=== PATIENT | female | born 1970 | race Caucasian/White ===

== ENCOUNTER → 2021-05-01 09:34 | Outpatient (CLI) | payer OTHER, SELFPAY ==
[2021-05-02 13:39] LABS: Covid-19 Nasal PCR Sendout Lex NOT DETECTED
== END ==
PROVIDERS: Visit Provider Nurse Practitioner
DX: Z20.822 Contact with and (suspected) exposure to COVID-19 (principal)
CPT/HCPCS: C9803; U0004; U0005

== ENCOUNTER → 2021-09-03 10:39 | Outpatient (CLI) | payer OTHER, SELFPAY ==
--- NOTE | 2021-09-03 10:39 | MM_ITS ---
PROCEDURE INFORMATION: Exam: Bilateral Screening 3D Mammography Exam date and time: 09/03/2021 10:35 AM Age: 51 years old Clinical indication: Screening. No family history of breast cancer. TECHNIQUE: Imaging protocol: Bilateral Screening tomosynthesis and 2D mammography including computer-aided detection (CAD) when performed. COMPARISON: No relevant prior studies available. If prior mammograms are provided, I am happy to add an addendum. FINDINGS: MAMMOGRAPHY: Breast composition: There are scattered areas of fibroglandular density. Mass: None. Architectural distortion: None. Calcifications: No suspicious calcifications. Asymmetric density: None. Skin thickening: None. Axillary adenopathy: None. IMPRESSION: No mammographic evidence of malignancy. Annual screening is recommended unless otherwise clinically indicated. ASSESSMENT: BI-RADS Category 1: Negative
== END ==
PROVIDERS: PCP Pediatrics; Visit Provider Obstetrics & Gynecology
DX: Z12.31 Encounter for screening mammogram for malignant neoplasm of breast (principal)
CPT/HCPCS: 77063; 77067

== ENCOUNTER → 2021-09-25 10:52 | Outpatient (CLI) | payer OTHER, SELFPAY ==
[2021-09-25 11:13] LABS: Basophils % 0.4 % (0.1-2.0); Eosinophils # 0.4 K/mm3 (0.0-0.4); Eosinophils % 5.2 % (0.1-12.0); Hematocrit 41.7 % (37.0-47.0); Hemoglobin 14.1 g/dL (12.2-16.2); Lymphocytes # 1.4 K/mm3 (0.7-4.5); Lymphocytes % 19.5 % (10-50); Mean Corpuscular HGB Conc 33.8 g/dL (31.8-35.4); Mean Corpuscular Hemoglobin 29.6 pg (27.0-31.2); Mean Corpuscular Volume 87.5 fl (81-99); Mean Platelet Volume 7.4 fl (7.4-10.4); Monocytes # 0.4 K/mm3 (0.1-1.0); Monocytes % 6.1 % (1.7-9.3); Neutrophils # 4.8 K/mm3 (1.8-7.8); Neutrophils % 68.7 % (37.0-80.0); Platelet Count 252 K/mm3 (142-424); Red Blood Count 4.77 M/mm3 (4.20-5.40); Red Cell Distribution Width 12.7 % (11.5-17.5); White Blood Count 6.9 K/mm3 (4.8-10.8)
[2021-09-25 11:57] LABS: Alanine Aminotransferase 30 U/L (12-78); Albumin/Globulin Ratio 1.6 (1.1-1.8); Alkaline Phosphatase 78 U/L (38-126); Anion Gap 8.1 mEq/L (5-15); Aspartate Amino Transferase 46 U/L (14-36); Bilirubin,Total 0.3 mg/dl (0.2-1.3); Blood Urea Nitrogen 10 mg/dl (7-17); Calcium 9.3 mg/dl (8.4-10.2); Carbon Dioxide 32 mmol/L (22.0-30.0); Chloride 103 mmol/L (98-107); Cholesterol 170 mg/dl (140-200); Estimated Glomerular Filt Rate 88 ml/min (>60); GFR (African American) 106 ML/MIN (>60); Globulin 2.5 g/dL (1.3-3.2); Glucose 90 mg/dl (74-100); HDL Cholesterol 34 mg/dl (40-60); Potassium 4.1 mmoL/L (3.5-5.1); Sodium 139 mmol/L (136-145); Total Protein,Serum 6.5 g/dl (6.3-8.2); Triglycerides 116 mg/dl (30-150); VLDL Cholesterol 23 mg/dL (0-40)
[2021-09-25 12:07] LABS: Direct LDL Cholesterol 92.02 mg/dL (100-129)
[2021-09-25 12:28] LABS: Thyroid Stimulating Hormone 6.09 uIU/mL (0.465-4.68)
[2021-09-25 16:49] LABS: Free T4 (Free Thyroxine) 0.65 ng/dl (0.78-2.19)
[2021-10-10 17:11] LABS: 1,25 Dihydroxy Vitamin D 53 pg/mL (.); 1,25-Dihydroxy, Vitamin D-2 <10 pg/mL (.); 1,25-Dihydroxy, Vitamin D-3 53 pg/mL (.)
== END ==
PROVIDERS: Visit Provider Obstetrics & Gynecology
DX: Z01.419 Encounter for gynecological examination (general) (routine) without abnormal findings (principal); R79.89 Other specified abnormal findings of blood chemistry; Z79.899 Other long term (current) drug therapy
CPT/HCPCS: 36415; 80053; 80061; 82652; 84439; 84443; 85025

== ENCOUNTER → 2021-11-25 11:14 | Outpatient (CLI) | payer OTHER, SELFPAY ==
[2021-11-25 14:16] LABS: Basophils # 0.1 K/mm3 (0-0.2); Basophils % 1.3 % (0.1-2.0); Eosinophils # 0.2 K/mm3 (0.0-0.4); Eosinophils % 3.7 % (0.1-12.0); Hematocrit 43.1 % (37.0-47.0); Hemoglobin 13.3 g/dL (12.2-16.2); Lymphocytes % 30.9 % (10-50); Mean Corpuscular HGB Conc 30.9 g/dL (31.8-35.4); Mean Corpuscular Hemoglobin 29.6 pg (27.0-31.2); Mean Corpuscular Volume 95.8 fl (81-99); Mean Platelet Volume 7.9 fl (7.4-10.4); Monocytes # 0.4 K/mm3 (0.1-1.0); Monocytes % 5.7 % (1.7-9.3); Neutrophils # 3.8 K/mm3 (1.8-7.8); Neutrophils % 58.4 % (37.0-80.0); Platelet Count 310 K/mm3 (142-424); Red Cell Distribution Width 13.4 % (11.5-17.5); White Blood Count 6.6 K/mm3 (4.8-10.8)
[2021-11-25 14:19] LABS: Alanine Aminotransferase 12 U/L (12-78); Albumin Level 4.2 g/dl (3.5-5.0); Albumin/Globulin Ratio 1.7 (1.1-1.8); Alkaline Phosphatase 83 U/L (38-126); Anion Gap 10.7 mEq/L (5-15); Aspartate Amino Transferase 24 U/L (14-36); Bilirubin,Total 0.1 mg/dl (0.2-1.3); Blood Urea Nitrogen 10 mg/dl (7-17); Calcium 9.3 mg/dl (8.4-10.2); Carbon Dioxide 30 mmol/L (22.0-30.0); Chloride 104 mmol/L (98-107); Estimated Glomerular Filt Rate 88 ml/min (>60); GFR (African American) 106 ML/MIN (>60); Globulin 2.5 g/dL (1.3-3.2); Glucose 75 mg/dl (74-100); Potassium 4.7 mmoL/L (3.5-5.1); Sodium 140 mmol/L (136-145); Total Protein,Serum 6.7 g/dl (6.3-8.2)
== END ==
PROVIDERS: PCP Family Medicine; Visit Provider Obstetrics & Gynecology
DX: R19.8 Other specified symptoms and signs involving the digestive system and abdomen (principal)
CPT/HCPCS: 36415; 80053; 85025

== ENCOUNTER 2022-03-02 13:15 | Emergency (ER) | payer OTHER, SELFPAY ==
--- NOTE | 2022-03-02 15:20 | EXP.UTC ---
Discharge Plan Disposition Patient Disposition: Home, Self-Care Condition: Good Prescriptions Prescriptions: New azithromycin [Zithromax] 250 mg tablet 250 mg PO UD DOSE PK Qty: 6 0RF Rx Instructions: Take two (2) tablets today, then one (1) tablet days #2 thru #5 benzonatate [benzonatate] 100 mg capsule 100 mg PO TIDP PRN (Reason: Cough) Qty: 30 0RF methylprednisolone 4 mg Tablets,Dose Pack 4 mg PO DIRECTED Qty: 21 0RF No Action multivitamin Tablet 1 tab PO DAILY acyclovir 200 mg capsule 200 mg PO TID clobetasol 0.05 % ointment 1 applic TP HS Qty: 30 2RF citalopram 40 mg tablet 40 mg PO DAILY Qty: 90 3RF methylprednisolone [Medrol (Mando)] 4 mg tablets,dose pack See Rx Instructions PO PER PKG DIR Qty: 21 0RF Rx Instructions: PO PER PKG DIR levothyroxine 50 mcg capsule 50 mcg PO DAILY Qty: 90 3RF Referrals Follow up/Referrals: Warren Lu MD [Primary Care Provider] - See instructions Activity Restrictions/Add. Instructions Additional Instructions/Restrictions: Drink plenty of fluids. Take tylenol or ibuprofen for pain or fever. Take the medications as directed. Follow up with your regular doctor. GO TO THE ER FOR ANY WORSENING SYMPTOMS Clinical Impressions Clinical Impression: Bronchitis, Sinusitis Stand Alone Forms Stand Alone Forms: Work/School Release Instructions Patient Instructions: DI for Sinusitis, DI for Acute Bronchitis Discharge ED Provider: Ry Powell [facility] General Stated complaint: Cough,Diarreha Time Seen by Provider: 03/02/22 15:20 History of Present Illness Provider Complaint: She states that for the past 1 week she has had sinus and chest congestion. She has felt like she was getting worse, so she came in here today. She denies fever, chills, and body aches. Related Data Home Medications Medication Instructions Recorded Confirmed acyclovir 200 mg capsule 200 mg PO TID 08/25/21 12/09/21 multivitamin 1 tab PO DAILY 08/25/21 12/09/21 Previous Rx's Medication Instructions Recorded clobetasol 0.05 % topical ointment 1 applic topical HS #30 grams 08/25/21 citalopram 40 mg tablet 40 mg PO DAILY #90 tabs 12/09/21 levothyroxine 50 mcg capsule 50 mcg PO DAILY #90 caps 12/09/21 methylprednisolone 4 mg tablets in See Rx Instructions PO PER PKG DIR 12/09/21 a dose pack (Medrol (Mando)) #21 tabs azithromycin 250 mg tablet 250 mg PO UD DOSE PK #6 tabs 03/02/22 (Zithromax) benzonatate 100 mg capsule 100 mg PO TIDP PRN Cough #30 caps 03/02/22 methylprednisolone 4 mg tablets in 4 mg PO DIRECTED #21 tabs 03/02/22 a dose pack Allergies Allergy/AdvReac Type Severity Reaction Status Date / Time acetaminophen [From Percocet] Allergy Verified 03/02/22 15:31 oxycodone [From Percocet] Allergy Verified 03/02/22 15:31 Sulfa (Sulfonamide Allergy Verified 03/02/22 15:30 Antibiotics) PFSH PFSH Social History Smoking Status: Current every day smoker alcohol intake: never current occupational status: unemployed Travel in the last 8 weeks: None ROS Obtained: Yes All systems reviewed & no additional complaints except as documented Constitutional Constitutional: Denies chills and Denies fever(s) Eyes Eyes: Denies eye discharge ENT Ears, Nose, Mouth, and Throat: Reports as per HPI, Denies dizziness, Denies otalgia, Reports sinus pressure and Reports sore throat Cardiovascular Cardiovascular: Denies chest pain Respiratory Respiratory: Denies shortness of breath, Denies chest congestion, Denies cough, Denies stridor and Denies wheezing Gastrointestinal Gastrointestingal: Denies nausea or vomiting Musculoskeletal Musculoskeletal: Reports system reviewed and no additional complaints, except as documented and Denies arthralgias Integumentary/Breasts Skin/Breast: Denies rash Neurologic Neurologic: Denies dizziness and Denies parest
[2022-03-02 15:27] LABS: UTC Influenza A Antigen Negative (Negative); UTC Influenza B Antigen Negative (Negative)
[2022-03-02 15:28] VITALS: BP 116/77; PULSE 65; RESP 18; TEMP 36.7; O2SAT 98; BMI 24.0
[2022-03-02 16:08] VITALS: BP 116/77; PULSE 65; RESP 18; TEMP 36.7
== END 2022-03-02 16:08 | disposition home or self-care (01) ==
PROVIDERS: Emergency Provider Nurse Practitioner Family; PCP Family Medicine
DX: J40 Bronchitis, not specified as acute or chronic (principal); J32.9 Chronic sinusitis, unspecified
CPT/HCPCS: 87804; 99212; G0463

== ENCOUNTER → 2022-10-12 08:45 | Outpatient (CLI) | payer OTHER, SELFPAY ==
--- NOTE | 2022-10-12 08:45 | MM_ITS ---
PROCEDURE INFORMATION: Exam: MG Bilateral Screening 3D Mammography Exam date and time: 10/12/2022 8:37 AM Age: 52 years old Clinical indication: Screening examination TECHNIQUE: Imaging protocol: Bilateral Screening tomosynthesis and 2D mammography including computer-aided detection (CAD) when performed. COMPARISON: 1. MG MM DIG SCREENING MAMM BI W/CAD 09/03/2021 10:35 AM 2. MG DMSB DIGITAL MAMM-SCREEN BILATERAL 08/08/2012 3:27 PM FINDINGS: MAMMOGRAPHY: Breast composition: The breasts are heterogeneously dense, which may obscure small masses. Mass: None. Architectural distortion: None. Calcifications: No suspicious calcifications. Asymmetric density: None. Skin thickening: None. Axillary adenopathy: None. IMPRESSION: No mammographic evidence of malignancy. Annual screening is recommended unless otherwise clinically indicated. ASSESSMENT: BI-RADS Category 1: Negative
== END ==
PROVIDERS: PCP Family Medicine; Visit Provider Obstetrics & Gynecology
DX: Z12.31 Encounter for screening mammogram for malignant neoplasm of breast (principal)
CPT/HCPCS: 77063; 77067

== ENCOUNTER → 2022-10-13 16:15 | Outpatient (CLI) | payer OTHER, SELFPAY ==
[2022-10-13 12:54] LABS: Basophils # 0.1 K/mm3 (0-0.2); Basophils % 0.5 % (0.1-2.0); Eosinophils # 0.3 K/mm3 (0.0-0.4); Eosinophils % 2.9 % (0.1-12.0); Hematocrit 43.3 % (37.0-47.0); Hemoglobin 13.6 g/dL (12.2-16.2); Lymphocytes # 2.6 K/mm3 (0.7-4.5); Lymphocytes % 28.8 % (10-50); Mean Corpuscular HGB Conc 31.4 g/dL (31.8-35.4); Mean Corpuscular Hemoglobin 28.9 pg (27.0-31.2); Mean Platelet Volume 8.3 fl (7.4-10.4); Monocytes # 0.6 K/mm3 (0.1-1.0); Monocytes % 6.1 % (1.7-9.3); Neutrophils # 5.6 K/mm3 (1.8-7.8); Neutrophils % 61.6 % (37.0-80.0); Platelet Count 278 K/mm3 (142-424); Red Cell Distribution Width 13.3 % (11.5-17.5)
[2022-10-13 13:22] LABS: Alanine Aminotransferase 19 U/L (12-78); Albumin Level 4.1 g/dl (3.5-5.0); Albumin/Globulin Ratio 1.7 (1.1-1.8); Alkaline Phosphatase 81 U/L (38-126); Aspartate Amino Transferase 24 U/L (14-36); Bilirubin,Total 0.3 mg/dl (0.2-1.3); Blood Urea Nitrogen 15 mg/dl (7-17); Calcium 8.9 mg/dl (8.4-10.2); Carbon Dioxide 25 mmol/L (22.0-30.0); Chloride 108 mmol/L (98-107); Chol/HDL Ratio 4.3 (1-3.5); Cholesterol 163 mg/dl (140-200); Estimated Glomerular Filt Rate 75 ml/min (>60); GFR (African American) 91 ML/MIN (>60); Globulin 2.4 g/dL (1.3-3.2); Glucose 105 mg/dl (74-100); HDL Cholesterol 38 mg/dl (40-60); Sodium 142 mmol/L (136-145); Total Protein,Serum 6.5 g/dl (6.3-8.2); Triglycerides 104 mg/dl (30-150); VLDL Cholesterol 21 mg/dL (0-40)
[2022-10-13 13:34] LABS: Direct LDL Cholesterol 92.44 mg/dL (100-129)
[2022-10-13 13:39] LABS: 25-OH Vitamin D, Total 32.6 ng/mL (30-100); Free T4 (Free Thyroxine) 0.76 ng/dl (0.78-2.19)
[2022-10-13 13:52] LABS: Thyroid Stimulating Hormone 3.86 uIU/mL (0.465-4.68)
== END ==
PROVIDERS: PCP Emergency Medicine; Visit Provider Emergency Medicine
DX: E03.9 Hypothyroidism, unspecified (principal)
CPT/HCPCS: 80053; 80061; 82306; 84439; 84443; 85025

== ENCOUNTER → 2022-11-16 11:51 | Outpatient (CLI) | payer OTHER, SELFPAY ==
--- NOTE | 2022-11-16 11:54 | XR_ITS ---
FINAL REPORT CLINICAL HISTORY: Left foot Pain for 3 weeks, some swelling COMPARISON: None FINDINGS: LEFT FOOT: Three views of the left foot were obtained. There is no acute fracture or dislocation. There is mild degenerative change. Small calcaneal spurs are noted. Pes planus deformity is present. There is no soft tissue abnormality. IMPRESSION: No acute bony abnormality. Reviewed, Interpreted and Dictated by Jaylan Rock III, MD Transcribed by Jodi Sparrow Authenticated and [facility]
--- NOTE | 2022-11-16 11:54 | XR_ITS ---
FINAL REPORT CLINICAL HISTORY: Left ankle Pain, pain 3 weeks, swelling COMPARISON: None FINDINGS: LEFT ANKLE: Three views of the left ankle were obtained. There is no acute fracture or dislocation. Mild degenerative change. Calcaneal spurs are present. There is chronic calcification inferior to the medial malleolus. There is no soft tissue abnormality. IMPRESSION: No acute bony abnormality. Reviewed, Interpreted and Dictated by Jaylan Rock III, MD Transcribed by Jodi Sparrow Authenticated and [facility]
== END ==
PROVIDERS: PCP Physician Assistant; Visit Provider Physician Assistant
DX: M79.672 Pain in left foot (principal); M25.572 Pain in left ankle and joints of left foot
CPT/HCPCS: 73610; 73630

== ENCOUNTER → 2023-03-24 23:08 | Outpatient (CLI) | payer OTHER, SELFPAY | LOC: LAB.DROPOF 23:11 | PROVIDERS: PCP Nurse Practitioner Family; Visit Provider Nurse Practitioner Family | DX: M79.674 Pain in right toe(s) (principal); B35.1 Tinea unguium | CPT/HCPCS: 87102; 87206; 87220 ==

== ENCOUNTER 2023-11-02 13:13 | Outpatient (CLI) | payer OTHER, SELFPAY ==
--- NOTE | 2023-11-02 13:13 | MM_ITS ---
PROCEDURE INFORMATION: Exam: MG Bilateral Screening 3D Mammography Exam date and time: 11/02/2023 1:10 PM Age: 53 years old Clinical indication: Screening examination. TECHNIQUE: Imaging protocol: Bilateral Screening tomosynthesis and 2D mammography including computer-aided detection (CAD) when performed. COMPARISON: 1. MG MM DIG SCREENING MAMM BI W/CAD 10/12/2022 8:37 AM 2. MG MM DIG SCREENING MAMM BI W/CAD 09/03/2021 10:35 AM 3. MG DMSB DIGITAL MAMM-SCREEN BILATERAL 08/08/2012 3:27 PM 4. MG DMSB DIGITAL MAMM-SCREEN BILATERAL 07/20/2011 2:17 PM FINDINGS: MAMMOGRAPHY: Breast composition: The breasts are heterogeneously dense, which may obscure small masses. Mass: None. Architectural distortion: None. Calcifications: No suspicious calcifications. Asymmetric density: None. Skin thickening: None. Axillary adenopathy: None. IMPRESSION: No mammographic evidence of malignancy. Annual screening is recommended unless otherwise clinically indicated. ASSESSMENT: BI-RADS Category 1: Negative
== END 2023-11-02 23:59 | disposition home or self-care (01) ==
LOC: RAD 13:13
PROVIDERS: PCP Physician Assistant; Visit Provider Physician Assistant
DX: Z12.31 Encounter for screening mammogram for malignant neoplasm of breast (principal)
CPT/HCPCS: 77063; 77067

== ENCOUNTER 2024-11-07 11:00 | Outpatient (CLI) | payer OTHER, SELFPAY | END 2024-11-07 23:59 | disposition home or self-care (01) | LOC: RAD 11:00 | PROVIDERS: PCP Physician Assistant; Visit Provider Obstetrics & Gynecology | DX: Z12.31 Encounter for screening mammogram for malignant neoplasm of breast (principal) | CPT/HCPCS: 77063; 77067 ==

== ENCOUNTER → 2024-12-07 10:54 | Day surgery (SDC) | payer OTHER, SELFPAY ==
[2024-12-01 11:05] VITALS: BMI 28.8
--- NOTE | 2024-12-06 09:54 | EXP.HP ---
History of Present Illness *Admission Date: 12/07/24 *History of present illness: Mrs. Gorman is a 54-year-old female who is here for screening colonoscopy. The patient's last colonoscopy was more than 10 years ago. She reports no abdominal pain, weight loss, change in her bowel habits or rectal bleeding. She reports no family history of colon cancer. The examination is deemed medically necessary for screening colonoscopy. The patient has been seen, interviewed and examined prior to the procedure by both myself and the anesthesia provider. [facility] Disclaimer: The information contained in this section may have been updated after the patient was seen, as this information can be updated by other users. Medical History Low back pain Tinnitus of right ear Right serous otitis media Weight gain, abnormal Lichen sclerosus et atrophicus of the vulva Depression Surgical History History of carpal tunnel release History of delivery Hx of appendectomy History of laparoscopy Family History Father Bone cancer Mother Family history of myocardial infarction Social History (Updated 12/07/24 @ 11:44 by Jayna Kendrick CRNA) Smoking Status: Former smoker alcohol intake: never substance use type: unknown current occupational status: unemployed Travel in the last 8 weeks?: None Have you lived/traveled outside US in past 30 days?: No Contact w/someone who lives/traveled outside US past 30 days?: No Exposure to someone with infectious disease in past 14 days?: No Do you have a fever (greater than 100.4 F or 38 C)?: No Have you tested positive for COVID-19?: No Exposed to someone with COVID-19 in past 14 days?: No Do you have a sore throat?: No Do you have a cough?: No Do you have any weakness?: No Do you have any diarrhea?: No Are you experiencing any unusual bleeding?: No Do you have any muscle aches/pain?: No Do you have any abdominal pain?: No Are you experiencing loss of taste or smell?: No Other Medical History Have you received the Pneumonia Vaccine: No Review of Systems Review of Systems Review of systems (narrative): Negative *Cardiovascular Comments: Negative *Gastrointestinal Comments: Negative *Genitourinary Comments: Negative *Musculoskeletal Comments: Negative *Neurologic Comments: Negative Meds Home Medications and Allergies Home Medications ?Medication ?Instructions ?Recorded ?Confirmed ?Type aspirin 81 mg tablet,delayed 81 mg PO DAILY 10/22/23 12/07/24 History release (Adult Low Dose Aspirin) citalopram 20 mg tablet See Rx Instructions .Route 01/07/24 12/07/24 Rx .COMPLEX #90 tabs acyclovir 800 mg tablet 800 mg PO QODHS 08/24/24 12/07/24 History cholecalciferol (vitamin D3) 50 50 mcg PO DAILY 08/24/24 12/07/24 History mcg (2,000 unit) capsule ergocalciferol (vitamin D2) 1,250 1,250 mcg PO WEEKLY 08/24/24 12/07/24 History mcg (50,000 unit) capsule levothyroxine 50 mcg tablet 50 mcg PO DAILY 08/24/24 12/07/24 History varenicline tartrate 0.5 mg (11)-1 1 tab PO DAILY 08/24/24 12/07/24 History mg (42) tablets in a dose pack (Chantix Starting Month Box) meloxicam 7.5 mg tablet See Rx Instructions .Route 11/23/24 12/07/24 Rx .COMPLEX #90 tabs sodium,potassium,mag sulfates 17.5 See Rx Instructions PO .COMPLEX 11/24/24 Rx gram-3.13 gram-1.6 gram oral soln #354 mL (Suprep Bowel Prep Kit) ascorbic acid (vitamin C) 25 mg 25 mg PO DAILY 12/01/24 12/07/24 History tablet gabapentin 100 mg tablet 100 mg PO TID PRN Pain 12/01/24 12/07/24 History omeprazole 10 mg capsule,delayed 10 mg PO DAILY 12/01/24 12/07/24 History release vitamin E 30 unit capsule 30 unit PO DAILY 12/01/24 12/07/24 History peg 3350-electrolytes 236 240 ml PO Q10M colonscopy #4,000 mL 12/05/24 Rx gram-22.74 gram-6.74 gram-5.86 gram solution (Golytely) New Prescriptions to Start Prescriptions: Allergies Allergy/AdvReac Type Severity Reaction Status Date / Time acetaminophen (From Percocet) Allergy Nausea Verified 12/07/24 11:15 oxycodone (From Percocet) Allergy Nausea Verified 12/07/24 11:15 Sulfa (Sulfonamide Allergy Hives Verified 12/07/24 11:15 Antibiotics) Exam *Routine HEENT Exam Head: Present normocephalic Eye: Present EOMI and PERRL ENT: Present mucous membranes moist *Routine Neck Exam Neck: Present supple *Routine Respiratory Exam Respiratory: Present CTA bilaterally *Routine Cardiovascular Exam Cardiovascular: Present RRR *Routine Abdominal Exam Abdominal: Present soft and normoactive bowel sounds; Absent tenderness *Routine Rectal Exam Rectal:: deferred *Routine Genitalia Exam Genitalia:: deferred *Routine Extremities Exam Extremities: Absent cyanosis, clubbing or edema *Routine Skin Exam Skin: Present warm; Absent rash *Routine Neurological Exam Neurological: Present alert and oriented X3 Assessment and Plan *Assessment and plan (1) Screening for colon cancer: Status: Acute Category: Medical Code(s): Z12.11 - Encounter for screening for malignant neoplasm of colon Plan A/P: 1. Screening for colon cancer is the preprocedural diagnosis. The patient will be anesthetized/sedated using MAC sedation. The patient has been seen and examined. Cardiac and lung assessment prior to the examination is stable. Proceed with planned screening colonoscopy.
[2024-12-07 11:19] VITALS: BP 121/80; PULSE 71; RESP 18; TEMP 36.1; O2SAT 95
[2024-12-07] MEDS: LACTATED RINGERS 1000ML 1,000 ML 50 ML IV (11:38)
--- NOTE | 2024-12-07 11:43 | P.PNANES_ITS ---
[facility] Disclaimer: The information contained in this section may have been updated after the patient was seen, as this information can be updated by other users. Medical History Low back pain Tinnitus of right ear Right serous otitis media Weight gain, abnormal Lichen sclerosus et atrophicus of the vulva Depression Surgical History History of carpal tunnel release History of delivery Hx of appendectomy History of laparoscopy Family History Father Bone cancer Mother Family history of myocardial infarction Social History Smoking Status: Former smoker alcohol intake: never substance use type: unknown current occupational status: unemployed Travel in the last 8 weeks?: None [facility] Anesthesia Checklist Patient Identification Patient Identification: Arm Band and Verbal (Name & ) Structural Data Admitted From: Home Planned Operative Procedure/s: colonscopy Consent for Planned Operative Procedure(s) Verified: Yes Verified Documents: Surgical Consent and History and Physical NPO Status Verified Time NPO: 00:00 Additional verifications Anesthesia Reactions: No Previous Colonoscopy: Yes Airway Assessment Mallampati Score:: Class II Dentition: Good Dentition Neurological Assessment Level of Consciousness: Awake, Alert and Appropriate Hx Seizures: No Numbness or tingling in extremities: No Anesthesia Plan Anesthesia Risk discussed: Yes Anesthesia Plan: Verified ASA Class: II Anesthesia Type: MAC
--- NOTE | 2024-12-07 11:56 | P.PCN_ITS ---
[facility] Procedure Note Date: 12/07/24 Time: 12:09 Procedure Note:: Colonoscopy Procedure Report: Colonoscopy Endoscopist: Guilherme Gomez II, MD Referring physician: Marcia Barron PA-C Date of Procedure: December 07, 2024 Equipment: Olympus [id number] adult colonoscope Sedation: MAC sedation Indication: Mrs. Gorman is a 54-year-old female who is here for screening colonoscopy. The patient's last colonoscopy was more than 10 years ago. She reports no abdominal pain, weight loss, change in her bowel habits or rectal bleeding. She reports no family history of colon cancer. Procedure: Prior to the procedure, a history and physical exam was performed, and patient's medications and allergies were reviewed. The risks, benefits and alternatives of the sedation and procedure were discussed with the patient. All questions were answered and informed consent was obtained. The patient was brought to the procedure room. Patient identification and proposed procedure were verified by the physician and the nurse. The patient was placed in a left lateral decubitus position and the scope was passed under direct vision. Throughout the procedure, the patient's blood pressure, pulse, and oxygen saturations were monitored continuously. The colonoscopy was accomplished without difficulty. The patient tolerated the procedure well. Findings: On digital rectal examination there was normal rectal tone. There were no external hemorrhoids. The colonoscope was introduced through the anal canal to the rectum and advanced to the cecum. The ileocecal valve and appendiceal orifice were identified. The scope was advanced a short distance into the ileum which appeared grossly normal. The scope was then withdrawn into the colon. The cecum, ascending, transverse, descending, sigmoid and rectum were grossly normal. There were no mucosal abnormalities identified. Upon retroflexion within the rectum there were grade 1 internal hemorrhoids. The preparation was excellent throughout with [place] Preparation Score of 9. The cecal time was 10 minutes. Impression: 1. Normal colonoscopy with intubation of the terminal ileum Plan: The patient will not require screening/surveillance colonoscopy again for 10 years by ACS guidelines.
[2024-12-07 12:10] VITALS: BP 89/53; PULSE 72; RESP 18; TEMP 36.2; O2SAT 93
[2024-12-07 12:20] VITALS: BP 90/57; PULSE 72; RESP 18; TEMP 36.2; O2SAT 94
[2024-12-07 12:30] VITALS: BP 100/59; PULSE 64; RESP 18; TEMP 36.2; O2SAT 94
[2024-12-07 12:40] VITALS: BP 110/66; PULSE 68; RESP 18; TEMP 36.2; O2SAT 95
== END | disposition home or self-care (01) ==
PROVIDERS: PCP Physician Assistant; Visit Provider Internal Medicine Gastroenterology
PROC: 0DJD8ZZ Inspection of Lower Intestinal Tract, Via Natural or Artificial Opening Endoscopic (ICD-10-PCS; CPT 45378; principal; 2024-12-07 12:30)
DX: Z12.11 Encounter for screening for malignant neoplasm of colon (principal); K64.0 First degree hemorrhoids; Z87.891 Personal history of nicotine dependence; Z79.82 Long term (current) use of aspirin; Z88.2 Allergy status to sulfonamides; Z88.5 Allergy status to narcotic agent; Z88.6 Allergy status to analgesic agent
CPT/HCPCS: 45378; J2003; J2704; J7120